=== PATIENT | female | born 1975 | race African-American/Black ===

== ENCOUNTER 2017-04-17 18:40 | Inpatient (IN) | payer BC ==
[~2017-04-17] VITALS: Ht 160 cm; Wt 90.7 kg
[2017-04-17 18:55] VITALS: BP 193/102
[2017-04-17] MEDS ORDERED: HYDROmorphone 1mg/ml Carpuject IVP ONE (19:00)
--- NOTE | 2017-04-17 19:01 | Emergency Room Report ---
History of Present Illness General Chief Complaint: Abdominal Pain Source: Patient Present Illness HPI Patient's a 42-year-old female presented after increased lower abdominal pain. Patient reported increased abdominal cramping. Patient had prior history of fibroid uterus and had uterine artery embolization. The patient not having fever. She reported having some increased dysuria. The patient had not been vomiting. She reported having recent CT imaging as well as ultrasound [employer]. She denied any vomiting she reported having severe pain not relieved by oral medications. She reports having altered allergies sulfa Allergies: Coded Allergies: SULFA (SULFONAMIDE ANTIBIOTICS) (Verified Allergy, Unknown, 04/17/17) Patient History Past Medical History: see triage record Last Menstrual Period: unk Now: No Reviewed Nursing Documentation: PMH: Agreed, PSxH: Agreed Review of Systems All Other Systems: negative except mentioned in HPI Physical Exam Vital Signs Date Time Temp Pulse Resp B/P (MAP) Pulse Ox O2 Delivery O2 Flow Rate FiO2 04/17/17 18:47 Room Air 04/17/17 18:55 97.7 92 22 193/102 95 Sp02 EP Interpretation: reviewed, normal General Appearance: normal inspection, alert, obese Head: atraumatic ENT: normal ENT inspection, hearing grossly normal, normal voice Neck: normal inspection, full range of motion, supple, no bony tend Respiratory: normal inspection, lungs clear, normal breath sounds, no respiratory distress, no retraction, no wheezing Cardiovascular #1: regular rate, rhythm, no edema Gastrointestinal: soft, no guarding, no hernia Genitourinary: no CVA tenderness Musculoskeletal: normal inspection, back normal, normal range of motion Neurologic: normal inspection, alert, oriented x3, responsive, data governance consultant III-XII nml as tested, speech normal Psychiatric: normal inspection, judgement/insight normal, mood/affect normal Skin: normal inspection, normal color, no rash Medical Decision Making Diagnostic Impression: Primary Impression: Abdominal pain Additional Impression: Status post embolization of uterine artery ER Course Patient presented for abdominal pain. Differential diagnoses included ischemic bowel, appendicitis, perforated viscus, abdominal aortic aneurysm, inferior myocardial infarction, viral gastroenteritis Because of complexity of patient's case laboratory testing and imaging studies were ordered. The patient's case was discussed with Dr. Chandu Damon who requested repeat CT imaging do to the patient's recurrent pain. The patient was given IV pain medication started on IV fluids. The patient be admitted for intractable pain. Labs Test 04/17/17 19:19 White Blood Count 8.6 K/UL (4.8-10.8) Red Blood Count 4.75 M/UL (4.20-5.40) Hemoglobin 12.0 G/DL (12.0-16.0) Hematocrit 39.5 % (37.0-47.0) Mean Corpuscular Volume 83 FL (80-99) Mean Corpuscular Hemoglobin 25.2 PG (27.0-31.0) Mean Corpuscular Hemoglobin Concent 30.3 G/DL (32.0-36.0) Red Cell Distribution Width 15.1 % (11.6-14.8) Platelet Count 267 K/UL (150-450) Mean Platelet Volume 5.3 FL (6.5-10.1) Neutrophils (%) (Auto) 74.4 % (45.0-75.0) Lymphocytes (%) (Auto) 18.7 % (20.0-45.0) Monocytes (%) (Auto) 5.2 % (1.0-10.0) Eosinophils (%) (Auto) 0.8 % (0.0-3.0) Basophils (%) (Auto) 0.9 % (0.0-2.0) Prothrombin Time 9.7 SEC (9.30-11.50) Prothromb Time International Ratio 0.9 (0.9-1.1) Activated Partial Thromboplast Time 24 SEC (23-33) Urine Color Pale yellow Urine Appearance Clear Urine pH 8 (4.5-8.0) Urine Specific [place] 1.015 (1.005-1.035) Urine Protein Negative (NEGATIVE) Urine Glucose (UA) Negative (NEGATIVE) Urine Ketones Negative (NEGATIVE) Urine Occult Blood Negative (NEGATIVE) Urine Nitrite Negative (NEGATIVE) Urine Bilirubin Negative (NEGATIVE) Urine Urobilinogen Normal MG/DL (0.0-1.0) Urine Leukocyte Esterase Negative (NEGATIVE) Sodium Level 142 MMOL/L (136-145) Potassium Level 3.8 MMOL/L (3.5-5.1) Chloride Level 107 MMOL/L (98-107) Carbon Dioxide Level 25 MMOL/L (21-32) Anion Gap 10 mmol/L (5-15) Blood Urea Nitrogen 19 mg/dL (7-18) Creatinine 1.1 MG/DL (0.55-1.30) Estimat Glomerular Filtration Rate > 60 mL/min (>60) Glucose Level 140 MG/DL (74-106) Calcium Level 9.9 MG/DL (8.5-10.1) Total Bilirubin 0.2 MG/DL (0.2-1.0) Aspartate Amino Transf (AST/SGOT) 18 U/L (15-37) Alanine Aminotransferase (ALT/SGPT) 21 U/L (12-78) Alkaline Phosphatase 113 U/L (46-116) Total Protein 8.4 G/DL (6.4-8.2) Albumin 4.0 G/DL (3.4-5.0) Globulin 4.4 g/dL Albumin/Globulin Ratio 0.9 (1.0-2.7) Last Vital Signs Date Time Temp Pulse Resp B/P (MAP) Pulse Ox O2 Delivery O2 Flow Rate FiO2 04/17/17 18:55 97.7 92 22 193/102 95 Room Air Status: unchanged Disposition: ADMITTED INPATIENT Condition: Serious KwasiBam Apr 17, 2017 19:01
[2017-04-17] MEDS ORDERED: MAGNESIUM CITR296 M1 PO (19:28)
[2017-04-17] MEDS ORDERED: NAPROXEN500 M2 ORAL (19:28)
[2017-04-17 19:31] LABS: BASOPHILS % (AUTO) 0.9 % (0.0-2.0); EOSINOPHILS % (AUTO) 0.8 % (0.0-3.0); LYMPHOCYTES % (AUTO) 18.7 % (20.0-45.0); MEAN CORPUSCULAR HEMOGLOBIN 25.2 PG (27.0-31.0); MEAN CORPUSCULAR HGB CONC 30.3 G/DL (32.0-36.0); MEAN CORPUSCULAR VOLUME 83 FL (80-99); MEAN PLATELET VOLUME 5.3 FL (6.5-10.1); MONOCYTES % (AUTO) 5.2 % (1.0-10.0); NEUTROPHILS % (AUTO) 74.4 % (45.0-75.0); PLATELET COUNT 267 K/UL (150-450); RED BLOOD COUNT 4.75 M/UL (4.20-5.40); RED CELL DISTRIBUTION WIDTH 15.1 % (11.6-14.8); WHITE BLOOD COUNT 8.6 K/UL (4.8-10.8)
[2017-04-17 19:54] LABS: APPEARANCE,URINE CLEAR; KETONES,URINE NEGATIVE (NEGATIVE); LEUKOCYTE ESTERASE ,URINE NEGATIVE (NEGATIVE); NITRITE,URINE NEGATIVE (NEGATIVE); PH,URINE 8 (4.5-8.0); PROTEIN,URINE NEGATIVE (NEGATIVE); UROBILINOGEN,URINE NORMAL MG/DL (0.0-1.0)
[2017-04-17 20:00] LABS: INR 0.9 (0.9-1.1); PROTHROMBIN TIME 9.7 SEC (9.30-11.50)
[2017-04-17] MEDS ORDERED: Hydromorphone 0.5mg/0.5ml inj IVP PRN ×3 (20:00)
[2017-04-17 20:16] LABS: ALANINE AMINOTRANSFERASE 21 U/L (12-78); ALBUMIN/GLOBULIN RATIO 0.9 (1.0-2.7); ANION GAP 10 mmol/L (5-15); ASPARTATE AMINO TRANSFERASE 18 U/L (15-37); CALCIUM 9.9 MG/DL (8.5-10.1); CARBON DIOXIDE 25 MMOL/L (21-32); CHLORIDE 107 MMOL/L (98-107); CREATININE 1.1 MG/DL (0.55-1.30); GLOMERULAR FILTRATION RATE > 60 mL/min (>60); POTASSIUM 3.8 MMOL/L (3.5-5.1); SODIUM 142 MMOL/L (136-145); TOTAL PROTEIN 8.4 G/DL (6.4-8.2)
[2017-04-17 21:07] VITALS: BP 135/118
[2017-04-17 22:15] VITALS: BP 149/83
[2017-04-17] MEDS: ceFAZolin 1gm/50ml Premix 50 ML IV SCH (22:55)
[2017-04-17] MEDS: Dextrose 5%/Lactated Ringer's 1,000 ML IV SCH (22:56)
[2017-04-18 00:29] VITALS: BP 167/86
[2017-04-18 04:30] VITALS: BP 160/80
[2017-04-18] MEDS: Dextrose 5%/Lactated Ringer's 1,000 ML IV SCH ×3 (04:32→09:12)
[2017-04-18] MEDS: ceFAZolin 1gm/50ml Premix 50 ML IV SCH ×3 (05:41→21:17)
[2017-04-18 07:48] LABS: BASOPHILS % (AUTO) 0.3 % (0.0-2.0); LYMPHOCYTES % (AUTO) 15.2 % (20.0-45.0); MEAN CORPUSCULAR HEMOGLOBIN 26.3 PG (27.0-31.0); MEAN CORPUSCULAR HGB CONC 31.7 G/DL (32.0-36.0); MEAN CORPUSCULAR VOLUME 83 FL (80-99); MEAN PLATELET VOLUME 5.6 FL (6.5-10.1); MONOCYTES % (AUTO) 6.5 % (1.0-10.0); PLATELET COUNT 264 K/UL (150-450); RED BLOOD COUNT 4.26 M/UL (4.20-5.40); RED CELL DISTRIBUTION WIDTH 15.1 % (11.6-14.8); WHITE BLOOD COUNT 8.9 K/UL (4.8-10.8)
[2017-04-18] MEDS ORDERED: Zolpidem 5mg tab ORAL PRN (08:00)
[2017-04-18 08:04] LABS: ALANINE AMINOTRANSFERASE 15 U/L (12-78); ALBUMIN/GLOBULIN RATIO 0.9 (1.0-2.7); ANION GAP 6 mmol/L (5-15); ASPARTATE AMINO TRANSFERASE 12 U/L (15-37); CALCIUM 8.8 MG/DL (8.5-10.1); CARBON DIOXIDE 30 MMOL/L (21-32); CHLORIDE 108 MMOL/L (98-107); CREATININE 0.9 MG/DL (0.55-1.30); GLOMERULAR FILTRATION RATE > 60 mL/min (>60); POTASSIUM 4.1 MMOL/L (3.5-5.1); SODIUM 144 MMOL/L (136-145); TOTAL PROTEIN 7.3 G/DL (6.4-8.2)
[2017-04-18 09:51] VITALS: BP 162/85
--- NOTE | 2017-04-18 09:59 | History & Physical ---
History and Physical History & Physicial Full dictation to follow Labs Test 04/17/17 19:19 04/18/17 06:20 White Blood Count 8.6 K/UL (4.8-10.8) 8.9 K/UL (4.8-10.8) Red Blood Count 4.75 M/UL (4.20-5.40) 4.26 M/UL (4.20-5.40) Hemoglobin 12.0 G/DL (12.0-16.0) 11.2 G/DL (12.0-16.0) Hematocrit 39.5 % (37.0-47.0) 35.3 % (37.0-47.0) Mean Corpuscular Volume 83 FL (80-99) 83 FL (80-99) Mean Corpuscular Hemoglobin 25.2 PG (27.0-31.0) 26.3 PG (27.0-31.0) Mean Corpuscular Hemoglobin Concent 30.3 G/DL (32.0-36.0) 31.7 G/DL (32.0-36.0) Red Cell Distribution Width 15.1 % (11.6-14.8) 15.1 % (11.6-14.8) Platelet Count 267 K/UL (150-450) 264 K/UL (150-450) Mean Platelet Volume 5.3 FL (6.5-10.1) 5.6 FL (6.5-10.1) Neutrophils (%) (Auto) 74.4 % (45.0-75.0) 78.0 % (45.0-75.0) Lymphocytes (%) (Auto) 18.7 % (20.0-45.0) 15.2 % (20.0-45.0) Monocytes (%) (Auto) 5.2 % (1.0-10.0) 6.5 % (1.0-10.0) Eosinophils (%) (Auto) 0.8 % (0.0-3.0) 0.0 % (0.0-3.0) Basophils (%) (Auto) 0.9 % (0.0-2.0) 0.3 % (0.0-2.0) Prothrombin Time 9.7 SEC (9.30-11.50) Prothromb Time International Ratio 0.9 (0.9-1.1) Activated Partial Thromboplast Time 24 SEC (23-33) Urine Color Pale yellow Urine Appearance Clear Urine pH 8 (4.5-8.0) Urine Specific [place] 1.015 (1.005-1.035) Urine Protein Negative (NEGATIVE) Urine Glucose (UA) Negative (NEGATIVE) Urine Ketones Negative (NEGATIVE) Urine Occult Blood Negative (NEGATIVE) Urine Nitrite Negative (NEGATIVE) Urine Bilirubin Negative (NEGATIVE) Urine Urobilinogen Normal MG/DL (0.0-1.0) Urine Leukocyte Esterase Negative (NEGATIVE) Sodium Level 142 MMOL/L (136-145) 144 MMOL/L (136-145) Potassium Level 3.8 MMOL/L (3.5-5.1) 4.1 MMOL/L (3.5-5.1) Chloride Level 107 MMOL/L (98-107) 108 MMOL/L (98-107) Carbon Dioxide Level 25 MMOL/L (21-32) 30 MMOL/L (21-32) Anion Gap 10 mmol/L (5-15) 6 mmol/L (5-15) Blood Urea Nitrogen 19 mg/dL (7-18) 13 mg/dL (7-18) Creatinine 1.1 MG/DL (0.55-1.30) 0.9 MG/DL (0.55-1.30) Estimat Glomerular Filtration Rate > 60 mL/min (>60) > 60 mL/min (>60) Glucose Level 140 MG/DL (74-106) 136 MG/DL (74-106) Calcium Level 9.9 MG/DL (8.5-10.1) 8.8 MG/DL (8.5-10.1) Total Bilirubin 0.2 MG/DL (0.2-1.0) 0.1 MG/DL (0.2-1.0) Aspartate Amino Transf (AST/SGOT) 18 U/L (15-37) 12 U/L (15-37) Alanine Aminotransferase (ALT/SGPT) 21 U/L (12-78) 15 U/L (12-78) Alkaline Phosphatase 113 U/L (46-116) 93 U/L (46-116) Total Protein 8.4 G/DL (6.4-8.2) 7.3 G/DL (6.4-8.2) Albumin 4.0 G/DL (3.4-5.0) 3.4 G/DL (3.4-5.0) Globulin 4.4 g/dL 3.9 g/dL Albumin/Globulin Ratio 0.9 (1.0-2.7) 0.9 (1.0-2.7) LÓPEZ HARVEY Apr 18, 2017 09:59
--- NOTE | 2017-04-18 10:02 | Diagnostic Imaging Report ---
Indication: Abdominal pain Technique: Continuous helical transaxial imaging of the abdomen and pelvis was obtained from the lung bases to the pubic symphysis during intravenous contrast administration. Coronal 2-D reformats were also obtained. Study obtained in a Siemens sensation [address] Total Dose length Product (DLP): [address] Dose Index Volume (CTDIvol): 19.75, 0.1 mGy Comparison: None Findings: There is a large cystic focus centered about the cervix and vagina measuring about 9-10 cm. Correlation with ultrasound and gynecology consultation suggested. This could be a very large nabothian cyst. There are uterine masses that are probably fibroids. The endometrial canal is fluid or blood filled slightly and is mildly distended. The ovaries are unremarkable. The urinary bladder is displaced anteriorly. The appendix is normal. There is no free fluid or free air or evidence of bowel obstruction. Solid organs appear normal. The lung bases appear clear. Impression: 10cm cystic mass in the area of the cervix. This is probably a large nabothian cyst but significant given its size and mass effect. Recommend consultation with gynecology. Multiple uterine masses consistent with fibroids Normal appendix The CT scanner at [facility] is accredited by the [employer] and the scans are performed using dose optimization techniques as appropriate to a performed exam including Automatic Exposure control.
[2017-04-18 12:05] VITALS: BP 168/82
[2017-04-18] MEDS ORDERED: Magnesium Citrate Liq Btl ORAL ONE (13:30)
[2017-04-18] MEDS ORDERED: traMADol 50mg tab ORAL PRN ×2 (13:30→15:00)
--- NOTE | 2017-04-18 13:32 | General Surgery Progress Note ---
General Surgery-Progress Note Subjective Symptoms: improved, tolerating diet, passing flatus Objective Last 24 Hour Vital Signs Date Time Temp Pulse Resp B/P (MAP) Pulse Ox O2 Delivery O2 Flow Rate FiO2 04/18/17 13:12 168/82 04/18/17 12:05 98.3 61 17 168/82 100 Room Air 04/18/17 09:51 97.7 70 18 162/85 100 Room Air 04/18/17 09:07 162/85 04/18/17 04:30 97.5 72 18 160/80 96 Room Air 04/18/17 00:29 97.6 70 19 167/86 97 Room Air 04/17/17 22:15 97.7 79 18 149/83 100 Room Air 04/17/17 21:46 97.7 72 24 135/118 98 Room Air 04/17/17 21:07 97.7 72 24 135/118 98 Room Air 04/17/17 18:55 97.7 92 22 193/102 95 Room Air 04/17/17 18:47 Room Air Dressing: dry Wound: clean Drains: none Cardiovascular: RSR Respiratory: clear Abdomen: soft, flat, scaphoid, tenderness Extremities: no edema, no cyanosis Laboratory Tests Test 04/17/17 19:19 04/18/17 06:20 White Blood Count 8.6 K/UL (4.8-10.8) 8.9 K/UL (4.8-10.8) Red Blood Count 4.75 M/UL (4.20-5.40) 4.26 M/UL (4.20-5.40) Hemoglobin 12.0 G/DL (12.0-16.0) 11.2 G/DL (12.0-16.0) L Hematocrit 39.5 % (37.0-47.0) 35.3 % (37.0-47.0) L Mean Corpuscular Volume 83 FL (80-99) 83 FL (80-99) Mean Corpuscular Hemoglobin 25.2 PG (27.0-31.0) L 26.3 PG (27.0-31.0) L Mean Corpuscular Hemoglobin Concent 30.3 G/DL (32.0-36.0) L 31.7 G/DL (32.0-36.0) L Red Cell Distribution Width 15.1 % (11.6-14.8) H 15.1 % (11.6-14.8) H Platelet Count 267 K/UL (150-450) 264 K/UL (150-450) Mean Platelet Volume 5.3 FL (6.5-10.1) L 5.6 FL (6.5-10.1) L Neutrophils (%) (Auto) 74.4 % (45.0-75.0) 78.0 % (45.0-75.0) H Lymphocytes (%) (Auto) 18.7 % (20.0-45.0) L 15.2 % (20.0-45.0) L Monocytes (%) (Auto) 5.2 % (1.0-10.0) 6.5 % (1.0-10.0) Eosinophils (%) (Auto) 0.8 % (0.0-3.0) 0.0 % (0.0-3.0) Basophils (%) (Auto) 0.9 % (0.0-2.0) 0.3 % (0.0-2.0) Prothrombin Time 9.7 SEC (9.30-11.50) Prothromb Time International Ratio 0.9 (0.9-1.1) Activated Partial Thromboplast Time 24 SEC (23-33) Urine Color Pale yellow Urine Appearance Clear Urine pH 8 (4.5-8.0) Urine Specific [place] 1.015 (1.005-1.035) Urine Protein Negative (NEGATIVE) Urine Glucose (UA) Negative (NEGATIVE) Urine Ketones Negative (NEGATIVE) Urine Occult Blood Negative (NEGATIVE) Urine Nitrite Negative (NEGATIVE) Urine Bilirubin Negative (NEGATIVE) Urine Urobilinogen Normal MG/DL (0.0-1.0) Urine Leukocyte Esterase Negative (NEGATIVE) Sodium Level 142 MMOL/L (136-145) 144 MMOL/L (136-145) Potassium Level 3.8 MMOL/L (3.5-5.1) 4.1 MMOL/L (3.5-5.1) Chloride Level 107 MMOL/L (98-107) 108 MMOL/L (98-107) H Carbon Dioxide Level 25 MMOL/L (21-32) 30 MMOL/L (21-32) Anion Gap 10 mmol/L (5-15) 6 mmol/L (5-15) Blood Urea Nitrogen 19 mg/dL (7-18) H 13 mg/dL (7-18) Creatinine 1.1 MG/DL (0.55-1.30) 0.9 MG/DL (0.55-1.30) Estimat Glomerular Filtration Rate > 60 mL/min (>60) > 60 mL/min (>60) Glucose Level 140 MG/DL (74-106) H 136 MG/DL (74-106) H Calcium Level 9.9 MG/DL (8.5-10.1) 8.8 MG/DL (8.5-10.1) Total Bilirubin 0.2 MG/DL (0.2-1.0) 0.1 MG/DL (0.2-1.0) L Aspartate Amino Transf (AST/SGOT) 18 U/L (15-37) 12 U/L (15-37) L Alanine Aminotransferase (ALT/SGPT) 21 U/L (12-78) 15 U/L (12-78) Alkaline Phosphatase 113 U/L (46-116) 93 U/L (46-116) Total Protein 8.4 G/DL (6.4-8.2) H 7.3 G/DL (6.4-8.2) Albumin 4.0 G/DL (3.4-5.0) 3.4 G/DL (3.4-5.0) Globulin 4.4 g/dL 3.9 g/dL Albumin/Globulin Ratio 0.9 (1.0-2.7) L 0.9 (1.0-2.7) L Imaging cystic 10 cm mass on cervix, ? nabothian cyst. will perform ultrasound in am Plan Additional Comments change pain medication to tramadol. Chandu Taylor MD Apr 18, 2017 13:32
[2017-04-18] MEDS ORDERED: Heplock Flush 100 units/ml 3 ml syr INJ SCH (14:00)
[2017-04-18] MEDS: Metoprolol Succinate XL 50mg tab ORAL SCH (14:47)
[2017-04-18 16:00] VITALS: BP 132/80
[2017-04-18 20:11] VITALS: BP 159/77
--- NOTE | 2017-04-19 04:30 | History and Physical Report ---
DATE OF ADMISSION: 04/17/2017 REASON FOR ADMISSION: Intractable pain. HISTORY OF PRESENT ILLNESS: This is a 42-year-old female, who underwent fibroid embolization approximately one month ago. The patient has had intractable pain. The patient denied any discharge or vaginal bleeding. The patient failed outpatient management and now presents for admission and evaluation. I was called to assist with medical management. The patient denies any fevers, chills, chest pain, headaches, or palpitations. PAST MEDICAL HISTORY: Notable for possible hypertension that was untreated. MEDICATIONS: None. ALLERGIES: None. SOCIAL HISTORY: Nondrinker and nonsmoker. The patient is in nursing. REVIEW OF SYSTEMS: Otherwise negative with the exception of the above. PHYSICAL EXAMINATION: GENERAL: A well-developed female, comfortable, pleasant. VITAL SIGNS: Otherwise stable. The patient is otherwise afebrile. LUNGS: Otherwise clear. CARDIAC: Normal S1 and S2. Regular rate and rhythm. ABDOMEN: Soft, nontender. EXTREMITIES: No cyanosis, clubbing, or edema. NEUROLOGIC: Grossly nonfocal. IMPRESSION: 1. Abdominal pain, intractable, overall improved. 2. Recent fibroid embolization. 3. Hypertension. RECOMMENDATIONS: Laboratory data reviewed and appeared to be fairly benign. Await CT of the abdomen. Defer to Gynecology for further intervention and disposition. We will provide antihypertensives. We will discharge. Fareed Jackson M.D. DR: Marek JOB#: [id number] CC:
[2017-04-19] MEDS: ceFAZolin 1gm/50ml Premix 50 ML IV SCH (05:08)
[2017-04-19 05:21] VITALS: BP 148/79
[2017-04-19 08:00] VITALS: BP 150/82
--- NOTE | 2017-04-19 08:04 | General Progress Note ---
Assessment/Plan Assessment/Plan large nabothian cyst abdominal pain fibroids hypertension PLAN dc today toprol xl given follow up BP after discharge US today patient medically stable Subjective Allergies: Coded Allergies: SULFA (SULFONAMIDE ANTIBIOTICS) (Verified Allergy, Unknown, 04/17/17) Subjective stable d/w SOCIAL SERVICE LIAISON planned dc today Objective Last 24 Hour Vital Signs Date Time Temp Pulse Resp B/P (MAP) Pulse Ox O2 Delivery O2 Flow Rate FiO2 04/19/17 05:21 98.2 63 18 148/79 98 Room Air 04/18/17 21:36 161/82 04/18/17 20:11 98.0 70 19 159/77 98 Room Air 04/18/17 16:00 97.8 7 18 132/80 97 Room Air 04/18/17 14:47 61 168/82 04/18/17 13:12 168/82 04/18/17 12:05 98.3 61 17 168/82 100 Room Air 04/18/17 09:51 97.7 70 18 162/85 100 Room Air 04/18/17 09:07 162/85 Labs Test 04/17/17 19:19 04/18/17 06:20 White Blood Count 8.6 K/UL (4.8-10.8) 8.9 K/UL (4.8-10.8) Red Blood Count 4.75 M/UL (4.20-5.40) 4.26 M/UL (4.20-5.40) Hemoglobin 12.0 G/DL (12.0-16.0) 11.2 G/DL (12.0-16.0) Hematocrit 39.5 % (37.0-47.0) 35.3 % (37.0-47.0) Mean Corpuscular Volume 83 FL (80-99) 83 FL (80-99) Mean Corpuscular Hemoglobin 25.2 PG (27.0-31.0) 26.3 PG (27.0-31.0) Mean Corpuscular Hemoglobin Concent 30.3 G/DL (32.0-36.0) 31.7 G/DL (32.0-36.0) Red Cell Distribution Width 15.1 % (11.6-14.8) 15.1 % (11.6-14.8) Platelet Count 267 K/UL (150-450) 264 K/UL (150-450) Mean Platelet Volume 5.3 FL (6.5-10.1) 5.6 FL (6.5-10.1) Neutrophils (%) (Auto) 74.4 % (45.0-75.0) 78.0 % (45.0-75.0) Lymphocytes (%) (Auto) 18.7 % (20.0-45.0) 15.2 % (20.0-45.0) Monocytes (%) (Auto) 5.2 % (1.0-10.0) 6.5 % (1.0-10.0) Eosinophils (%) (Auto) 0.8 % (0.0-3.0) 0.0 % (0.0-3.0) Basophils (%) (Auto) 0.9 % (0.0-2.0) 0.3 % (0.0-2.0) Prothrombin Time 9.7 SEC (9.30-11.50) Prothromb Time International Ratio 0.9 (0.9-1.1) Activated Partial Thromboplast Time 24 SEC (23-33) Urine Color Pale yellow Urine Appearance Clear Urine pH 8 (4.5-8.0) Urine Specific [place] 1.015 (1.005-1.035) Urine Protein Negative (NEGATIVE) Urine Glucose (UA) Negative (NEGATIVE) Urine Ketones Negative (NEGATIVE) Urine Occult Blood Negative (NEGATIVE) Urine Nitrite Negative (NEGATIVE) Urine Bilirubin Negative (NEGATIVE) Urine Urobilinogen Normal MG/DL (0.0-1.0) Urine Leukocyte Esterase Negative (NEGATIVE) Sodium Level 142 MMOL/L (136-145) 144 MMOL/L (136-145) Potassium Level 3.8 MMOL/L (3.5-5.1) 4.1 MMOL/L (3.5-5.1) Chloride Level 107 MMOL/L (98-107) 108 MMOL/L (98-107) Carbon Dioxide Level 25 MMOL/L (21-32) 30 MMOL/L (21-32) Anion Gap 10 mmol/L (5-15) 6 mmol/L (5-15) Blood Urea Nitrogen 19 mg/dL (7-18) 13 mg/dL (7-18) Creatinine 1.1 MG/DL (0.55-1.30) 0.9 MG/DL (0.55-1.30) Estimat Glomerular Filtration Rate > 60 mL/min (>60) > 60 mL/min (>60) Glucose Level 140 MG/DL (74-106) 136 MG/DL (74-106) Calcium Level 9.9 MG/DL (8.5-10.1) 8.8 MG/DL (8.5-10.1) Total Bilirubin 0.2 MG/DL (0.2-1.0) 0.1 MG/DL (0.2-1.0) Aspartate Amino Transf (AST/SGOT) 18 U/L (15-37) 12 U/L (15-37) Alanine Aminotransferase (ALT/SGPT) 21 U/L (12-78) 15 U/L (12-78) Alkaline Phosphatase 113 U/L (46-116) 93 U/L (46-116) Total Protein 8.4 G/DL (6.4-8.2) 7.3 G/DL (6.4-8.2) Albumin 4.0 G/DL (3.4-5.0) 3.4 G/DL (3.4-5.0) Globulin 4.4 g/dL 3.9 g/dL Albumin/Globulin Ratio 0.9 (1.0-2.7) 0.9 (1.0-2.7) Height (Feet): 5 Height (Inches): 3.00 Weight (Pounds): 200 Objective WDWN NAD clear breath sounds bilaterally without rhonchi or wheeze [id number] without MRG NABS nontender no HSM no CCE nonfocal LÓPEZ HARVEY Apr 19, 2017 08:04
[2017-04-19 08:21] LABS: BASOPHILS % (AUTO) 0.6 % (0.0-2.0); EOSINOPHILS % (AUTO) 1.3 % (0.0-3.0); MEAN CORPUSCULAR HEMOGLOBIN 25.9 PG (27.0-31.0); MEAN CORPUSCULAR HGB CONC 31.1 G/DL (32.0-36.0); MEAN CORPUSCULAR VOLUME 83 FL (80-99); MEAN PLATELET VOLUME 5.7 FL (6.5-10.1); MONOCYTES % (AUTO) 7.8 % (1.0-10.0); NEUTROPHILS % (AUTO) 55.2 % (45.0-75.0); PLATELET COUNT 248 K/UL (150-450); RED BLOOD COUNT 4.49 M/UL (4.20-5.40); RED CELL DISTRIBUTION WIDTH 15.1 % (11.6-14.8)
[2017-04-19 08:50] LABS: ALANINE AMINOTRANSFERASE 18 U/L (12-78); ALBUMIN/GLOBULIN RATIO 0.8 (1.0-2.7); ANION GAP 6 mmol/L (5-15); ASPARTATE AMINO TRANSFERASE 13 U/L (15-37); CALCIUM 8.7 MG/DL (8.5-10.1); CARBON DIOXIDE 29 MMOL/L (21-32); CHLORIDE 105 MMOL/L (98-107); GLOMERULAR FILTRATION RATE > 60 mL/min (>60); POTASSIUM 3.8 MMOL/L (3.5-5.1); SODIUM 140 MMOL/L (136-145); TOTAL PROTEIN 7.4 G/DL (6.4-8.2)
[2017-04-19 09:05] VITALS: BP 150/82
[2017-04-19] MEDS: Metoprolol Succinate XL 50mg tab ORAL SCH (09:05)
--- NOTE | 2017-04-19 11:16 | Diagnostic Imaging Report ---
Indication: Pelvic pain status post uterine fibroid embolization 03/16/2017 Technique: Transabdominal and transvaginal images Comparison: CT scan dated 04/17/2017 Findings: Uterus measures 9.1 cm length by 8.1 cm AP. The endometrium is filled with anechoic fluid, endometrial cavity measuring 3.6 cm thick. A more isoechoic structure is seen projecting within the endometrial fluid, measuring 21 x 14 mm. Within the cervix, there is a large cyst with low-level internal echoes, expanding the cervix. This measures 9.1 x 8.5 cm. Separate endocervical canal is not demonstrated. There does appear to be a point of communication between this cyst and endometrium. Hypoechoic fibroids are seen within the myometrium, largest measuring 3.8 cm in diameter. A small amount of free fluid is seen in the cul-de-sac. The right ovary measures 2.9 cm in length. The left ovary measures 3.9 cm in length. Impression: Fluid-filled thickened endometrial cavity. Fluid is nonspecific as regards etiology. 9.1 cm cystic appearing structure within the cervix. This does appear to communicate with the endometrium, so it could be a dilated obstructed endocervical canal filled with complex fluid or blood. Multiple uterine fibroids, consistent with known history of fibroids, status post embolization Trace free cul-de-sac fluid, most likely physiologic Findings previously discussed by phone with Dr. Taylor
[2017-04-19] MEDS ORDERED: TRAMADOL HCL50 MG ORAL (11:43)
[2017-04-19] MEDS ORDERED: TOPROL XL50 MG ORAL (11:56)
--- NOTE | 2017-04-19 15:14 | General Surgery Progress Note ---
General Surgery-Progress Note Subjective Procedure Performed uterine artery embolization Symptoms: improved, tolerating diet, BM Objective Last 24 Hour Vital Signs Date Time Temp Pulse Resp B/P (MAP) Pulse Ox O2 Delivery O2 Flow Rate FiO2 04/19/17 09:05 60 150/82 04/19/17 08:00 60 17 150/82 97 Room Air 04/19/17 05:21 98.2 63 18 148/79 98 Room Air 04/18/17 21:36 161/82 04/18/17 20:11 98.0 70 19 159/77 98 Room Air 04/18/17 16:00 97.8 7 18 132/80 97 Room Air Dressing: dry Wound: clean Drains: none Cardiovascular: RSR Respiratory: clear Abdomen: soft, flat, scaphoid, tenderness, present bowel sounds Extremities: no edema, no tenderness, no cyanosis Laboratory Tests Test 04/19/17 06:30 White Blood Count 6.0 K/UL (4.8-10.8) Red Blood Count 4.49 M/UL (4.20-5.40) Hemoglobin 11.7 G/DL (12.0-16.0) L Hematocrit 37.4 % (37.0-47.0) Mean Corpuscular Volume 83 FL (80-99) Mean Corpuscular Hemoglobin 25.9 PG (27.0-31.0) L Mean Corpuscular Hemoglobin Concent 31.1 G/DL (32.0-36.0) L Red Cell Distribution Width 15.1 % (11.6-14.8) H Platelet Count 248 K/UL (150-450) Mean Platelet Volume 5.7 FL (6.5-10.1) L Neutrophils (%) (Auto) 55.2 % (45.0-75.0) Lymphocytes (%) (Auto) 35.0 % (20.0-45.0) Monocytes (%) (Auto) 7.8 % (1.0-10.0) Eosinophils (%) (Auto) 1.3 % (0.0-3.0) Basophils (%) (Auto) 0.6 % (0.0-2.0) Sodium Level 140 MMOL/L (136-145) Potassium Level 3.8 MMOL/L (3.5-5.1) Chloride Level 105 MMOL/L (98-107) Carbon Dioxide Level 29 MMOL/L (21-32) Anion Gap 6 mmol/L (5-15) Blood Urea Nitrogen 17 mg/dL (7-18) Creatinine 1.0 MG/DL (0.55-1.30) Estimat Glomerular Filtration Rate > 60 mL/min (>60) Glucose Level 119 MG/DL (74-106) H Calcium Level 8.7 MG/DL (8.5-10.1) Total Bilirubin 0.1 MG/DL (0.2-1.0) L Aspartate Amino Transf (AST/SGOT) 13 U/L (15-37) L Alanine Aminotransferase (ALT/SGPT) 18 U/L (12-78) Alkaline Phosphatase 95 U/L (46-116) Total Protein 7.4 G/DL (6.4-8.2) Albumin 3.3 G/DL (3.4-5.0) L Globulin 4.1 g/dL Albumin/Globulin Ratio 0.8 (1.0-2.7) L Imaging pelvic ultrasound today, likely hematometrium, Plan Additional Comments discharge on tramadol, referred to regulatory affairs portfolio leader oncology. may need drainage prior. Chandu Taylor MD Apr 19, 2017 15:14
--- NOTE | 2017-04-20 13:41 | Discharge Summary ---
Discharge Summary Hospital Course Date of Admission Apr 17, 2017 at 19:35 Date of Discharge Apr 19, 2017 at 12:05 Admitting Diagnosis abdominal pain/ status post uterine artery emboliz DEBBI Llanos is a 42 year old female who was admitted on Apr 17, 2017 at 19:35 for Abdominal Pain,Status Post Uterine Artery Emboliz Hospital Course dc summary #[id number] Discharge Medications Continued Medications: Metoprolol Succinate* (Toprol Xl*) 50 Mg Tab.er.24h 50 MG ORAL DAILY, #30 TAB Tramadol Hcl* (Ultram*) 50 Mg Tablet 100 MG ORAL Q6H PRN for For Pain, #30 TAB 0 Refills Discharge Condition Upon Discharge: stable Discharge Disposition Patient was discharged to Home (01) Discharge Diagnoses: Discharge Instructions Discharge Instructions Special Instructions I have been assigned to complete a D/C Summary on this account. I was not involved in the patient management Dione Marcano NP ([place]) Apr 20, 2017 13:41
--- NOTE | 2017-04-21 07:00 | Discharge Summary 2 SIG ---
DATE OF ADMISSION: 04/17/2017 DATE OF DISCHARGE: 04/19/2017 REASON FOR ADMISSION: 42-year-old female, who recently undergone uterine artery embolization (about a month ago), presented to emergency department with intractable abdominal pain. She denied any vaginal discharge or bleeding. She failed outpatient management and presented for admission and evaluation. The patient denied fever, chills, chest pain, headache, and palpitations. The patient was admitted for intractable abdominal pain, recent fibroid embolization as well as the hypertension. The patient apparently had a history of prior hypertension that was untreated. HOSPITAL STAY: The patient was admitted. Pain management was provided. Patient was initially on IV fluids. The patient undergone CT of the abdomen and pelvis, which revealed a 10 cm cystic mass in the area of the cervix. Probably a large nabothian cyst, but significant, given its size and mass effect. Multiple uterine masses were consistent with fibroids. Normal appendix. ASSISTANT TECHNICIAN /Surgeon followed the patient. Subsequently abdominal /pelvic transvaginal ultrasound was ordered, which revealed fluid-filled thickened endometrial cavity. A 9.1 cm cystic appearing structure within the cervix. This appeared to be communicate with the endometrium, possible dilated obstructed endocervical canal filled with complex fluid or the blood. Multiple uterine fibroids consistent with known history of fibroids, status post embolization. Trace free cul-de-sac fluid, most likely physiological. According to the surgeon, the patient likely have hematometrium. The patient was stable for discharge. The patient was referred to ASSISTANT TECHNICIAN, Oncology , and may need drainage prior- as per [employer] Equipment Technician. The patient started on Toprol-XL. Follow up with the blood pressure as outpatient. Pain was controlled. The patient was stable for discharge. FINAL DIAGNOSES: 1. Intractable abdominal pain. 2. Fibroids. 3. Recent uterine artery embolization. 4. Hypertension. 5. Cystic 10 cm mass on cervix. 6. Possible nabothian cyst. 7. Likely hematometrium. 8. Hypertension. DISCHARGE MEDICATIONS: See medication reconciliation list. DISCHARGE INSTRUCTIONS: The patient was discharged home. FOLLOWUP: Follow up with the primary medical doctor for blood pressure management. Follow up with the ASSISTANT TECHNICIAN /oncologist as referred by back sizer/ surgeon. Fareed Jackson M.D. I have been assigned to dictate discharge summary on this account and I was not involved in the patient's management. Dione HeathElmhurst Hospital CenterCorrine NMateuszPMateusz DR: BOO JOB#: [id number] CC: LUIS
== END 2017-04-19 12:05 | disposition home or self-care (01) | DRG 761 ==
LOC: EMR 19:15 → 3E 19:35 → EDBEDREQ 21:01
DX: D25.9 Leiomyoma of uterus, unspecified (principal); I10 Essential (primary) hypertension; R10.9 Unspecified abdominal pain; N88.8 Other specified noninflammatory disorders of cervix uteri; N85.7 Hematometra; Z88.2 Allergy status to sulfonamides; Z98.890 Other specified postprocedural states
CPT/HCPCS: 36415; 74177; 76830; 76856; 80053; 81003; 85025; 85610; 85730; 99285; J2405